=== PATIENT | male | born 1965 | race Caucasian/White ===

== ENCOUNTER 2020-09-24 10:06 | Emergency (ER) | payer BC ==
[~2020-09-24] VITALS: Ht 172.7 cm; Wt 70.5 kg
[2020-09-24 10:29] LABS: HEMATOCRIT 46.9 % (39.0-50.0); IMMATURE GRANULOCYTES 0.2 % (0.0-5.0); MEAN CELL VOLUME 93.2 fL CALC (80.0-100.0); MEAN CORPUSCULAR HGB 29.8 pG CALC (26.0-32.0); NEUT# 3.86 thou/uL (1.82-7.42); RED BLOOD COUNT 5.03 mill/uL (4.70-6.10); RED CELL DISTRI WIDTH 13.2 % (11.5-15.5)
[2020-09-24] MEDS ORDERED: LISINOPRIL2.5 MG PO (10:31)
[2020-09-24] MEDS ORDERED: CRESTOR10 MG PO (10:31)
[2020-09-24] MEDS ORDERED: METOPROL TAR25 MG PO (10:32)
[2020-09-24] MEDS ORDERED: NORVASC2.5 M1 PO (10:32)
[2020-09-24] MEDS ORDERED: TRAZODONE50 MG PO (10:33)
[2020-09-24] MEDS ORDERED: CYCLOBENZAPR5 MG PO (10:33)
[2020-09-24] MEDS ORDERED: ASPIRIN81 MG PO (10:33)
[2020-09-24] MEDS ORDERED: LORAZEPAM0.5 MG PO (10:34)
[2020-09-24 10:55] LABS: D-DIMER 0.2 mg/L (0.19-0.60)
[2020-09-24 11:10] LABS: ALBUMIN 4.4 g/dL (3.2-5.0); ALKALINE PHOSPHATASE 76 u/l (38-126); AMYLASE 116 u/l (30-110); ANION GAP 10 (6-22 (CALC)); BILIRUBIN, TOTAL 0.5 mg/dL (0.0-1.4); BUN 11 mg/dL (9-20); BUN/CREATININE RATIO 11 (12-20 (CALC)); CARBON DIOXIDE 30 mmol/l (22-30); CHLORIDE 102 mmol/l (95-108); ETHYL ALCOHOL 0 mg/dl (0-30); GFR > 60 ML/MIN (>=60 (CALC)); GFR FOR AFR.AMER. > 60 ML/MIN (>=60 (CALC)); LIPASE 111 u/l (23-300); MAGNESIUM 2.2 mg/dL (1.6-2.3); POTASSIUM 3.4 mmol/l (3.5-5.1); SGOT/AST 24 u/l (17-59); SODIUM 139 mmol/l (137-146); TOTAL PROTEIN 7.5 g/dL (6.3-8.2)
[2020-09-24 11:17] LABS: ACT PARTIAL THROMBO TIME 24.8 SECONDS (20.0-32.5); INTERNATIONAL NORMALIZED RATIO 0.9 RATIO (0.7-1.3); PROTHROMBIN TIME 9.6 SECONDS (9.0-12.5)
[2020-09-24 11:20] LABS: MYOGLOBIN 27 ng/mL (0 - 121)
[2020-09-24 11:39] LABS: TSH, 3RD GENERATION 0.83 uIU/mL (0.47 - 4.68)
[2020-09-24 12:07] LABS: URINE BILIRUBIN - DIPSTICK NEGATIVE (NEGATIVE); URINE COLOR YELLOW; URINE GLUCOSE - DIPSTICK 100 mg/dL (NEGATIVE); URINE KETONE NEGATIVE (NEGATIVE); URINE LEUK ESTERASE NEGATIVE (NEGATIVE); URINE NITRITE - DIPSTICK NEGATIVE (Negative); URINE PH 6.5 (4.5-8.0); URINE PROTEIN - DIPSTICK NEGATIVE (NEG-TRACE); URINE UROBILINOGEN - DIPSTICK 0.2 E.U./dL (0.2)
[2020-09-24 12:08] LABS: URINE BLOOD DIPSTICK NEGATIVE (NEGATIVE)
[2020-09-24 15:41] VITALS: BP 121/71
== END 2020-09-24 15:41 | disposition short-term general hospital (02) | DRG 310 ==
LOC: ED 10:06
DX: I48.91 Unspecified atrial fibrillation (principal); I10 Essential (primary) hypertension; Z95.5 Presence of coronary angioplasty implant and graft
CPT/HCPCS: J0153